=== PATIENT | male | born 1995 | race Hispanic/Latino ===

== ENCOUNTER 2024-10-04 09:02 | Emergency (ER) | payer OTHER ==
[~2024-10-04] VITALS: Ht 167.6 cm; Wt 95.3 kg
[2024-10-04 09:04] VITALS: TEMP 97.7
--- NOTE | 2024-10-04 09:11 | NUR ---
PT JUST NOW PLACED IN MY ED BED 10
[2024-10-04] MEDS ORDERED: MELO-108 PO (09:56)
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
[2024-10-04 10:10] VITALS: BP 124/88; PULSE 68; RESP 17; O2SAT 99
--- NOTE | 2024-10-04 10:23 | HMCIMG ---
KNEE 3VWS LT REASON: injury L knee TECHNIQUE: 3 views were obtained. FINDINGS: There is no evidence of fracture or dislocation. There is no joint effusion. The soft tissues appear unremarkable. There is no evidence of a radiopaque foreign body. IMPRESSION: No acute findings.
== END 2024-10-04 10:07 | disposition home or self-care (01) ==
LOC: EDH 09:02
DX: S80.02XA Contusion of left knee, initial encounter (principal); V89.2XXA Person injured in unspecified motor-vehicle accident, traffic, initial encounter; Y93.89 Activity, other specified; Y92.488 Other paved roadways as the place of occurrence of the external cause; Y99.8 Other external cause status
CPT/HCPCS: 73562; 99283